=== PATIENT | female | born 1995 | race Caucasian/White ===

== ENCOUNTER 2016-10-24 06:52 | Day surgery (SDC) | payer OTHER ==
[~2016-10-24 06:52] MED LIST: RINGER'S SOLUTION,LACTATED 1,000 ML IV PRN; ceFAZolin SODIUM 2 GM in DEXTROSE 5 % IN WATER 50 ML IV PRN
[2016-10-24] MEDS ORDERED: BUPIVACAINE HCL/EPINEPHRINE 50 ML VIAL IJ ONE ×2 (08:05)
[2016-10-24] MEDS ORDERED: MUPIROCIN 22 APPL TUBE TP ONE (08:31)
[2016-10-24] MEDS ORDERED: RINGER'S SOLUTION,LACTATED 1,000 ML IV ONE (09:10)
[2016-10-24] MEDS ORDERED: RINGER'S SOLUTION,LACTATED 1,000 ML IV PRN (09:38)
[2016-10-24] MEDS ORDERED: oxyCODONE HCL/ACETAMINOPHEN 1 TAB TABLET PO ONE ×2 (09:38→11:01)
[2016-10-24] MEDS ORDERED: oxyCODONE HCL/ACETAMINOPHEN 1 TAB TABLET ONE (11:14)
--- NOTE | 2016-10-24 11:52 | OR ---
Operative Report - Dictated Report Narrative: DATE OF OPERATION: 10/24/2016 PREOPERATIVE DIAGNOSIS: Cholelithiasis and cholecystitis POSTOPERATIVE DIAGNOSIS: Cholelithiasis and cholecystitis OPERATION: Laparoscopic cholecystectomy SURGEON: YOHANNES Sauer MD ANESTHESIA Gen. kathy Hylton CRNA INDICATIONS FOR PROCEDURE: The patient is a 20-year-old female referred by Dr. Kellen Knapp with symptomatic cholelithiasis. FINDINGS: Cholelithiasis and cholecystitis NARRATIVE OF PROCEDURE: The patient was identified preoperatively. Prior to the administration of anesthetic a multidisciplinary timeout observed. With the patient in the supine position, SCDs were placed, 2 g of intravenous Ancef administered, and general endotracheal anesthetic administered. The patient's abdomen was prepped with Betadine solution and a generous operating field outlined with 4 sterile towels. The remainder the patient was covered with a sterile disposable drape. An infraumbilical skin incision was made. Dissection was carried along the umbilical stalk until the fascia of the linea alba was encountered. This was incised. The peritoneum was then elevated and incised to allow entry into the abdomen under direct vision. A Hussan cannula was placed, and the abdomen insufflated with CO2. The laparoscopic camera was introduced and the abdomen briefly explored. Those portions of the liver, stomach, colon, and small bowel visualized appeared normal. The apex of the gallbladder was visible and appeared noninflamed. Next under direct vision 3 additional working ports were inserted through separate skin incisions, one in the subxiphoid, one in the right upper quadrant, and one in the right flank. The gallbladder was decompressed with a needle and the needle site grasped. The apex of the gallbladder was retracted cephalad. There were no adhesions to the gallbladder and the expected location of the cystic duct was explored. The cystic duct was dissected free for a sufficient distance for confident identification. It was doubly clipped and divided. The cystic artery was identified doubly clipped and divided. The gallbladder was then removed from the liver bed by retrograde electrocautery dissection. Prior to severing the last attachments of the gallbladder the liver bed was inspected and found to be hemostatic with no evidence of bile leak. The previously placed clips were seen to be intact. The right upper quadrant was suctioned clean. The last attachments of the gallbladder were divided. It was placed in an Endobag and parked in the right upper quadrant. The smaller working ports were withdrawn under direct vision to ensure entry site hemostasis. The gallbladder was removed in conjunction with the Hussan cannula. The pneumoperitoneum was allowed to escape, and after receiving a correct sponge needle and instrument count attention was turned to closing the abdomen. The fascia and peritoneum at the umbilicus were approximated with interrupted sutures of #1 Vicryl. Skin incisions were approximated with interrupted vertical mattress sutures of 4-0 nylon. The operative sites were washed and dried. Dressings of Bactroban ointment and large Band-Aids were applied to the small port sites. The umbilical incision was dressed with Bactroban ointment, 2 x 2, large Band-Aid and Medipore tape. The operative procedure was terminated at this point. The patient tolerated the anesthetic and procedure well without complication. There was no measurable blood loss. The gallbladder was submitted to pathology. 0.5% Marcaine with epinephrine was used for local anesthetic infiltration. The patient was transferred to the recovery room awake, extubated , and in stable condition. The patient remained stable throughout a period of postoperative observation. She was able to tolerate po intake and was up without assistance. Her pain was controlled with Percocet. Her dressings remained dry. I reviewed the operative findings with her and she was given copies of the photographs which appear in the medical record. The patient was discharged home with instructions not to lift and not to drive. She is to leave the current dressing dry and intact for 48 hours, but then may shower and change the dressing daily or as needed. She was given phone numbers to call when necessary signs of wound infection or hematoma. The patient was given a prescription for Percocet 5/325 mg #30 1-2 po Q4-6hrs prn pain. A return office appointment was made for 1 week. Reviewed and electronically signed
[2016-10-24 12:40] VITALS: BP 115/60
== END 2016-10-24 06:53 | disposition home or self-care (01) ==
LOC: AMB 06:52
PROVIDERS: ATTEND Surgery
PROC: 0FT44ZZ Resection of Gallbladder, Percutaneous Endoscopic Approach (ICD-10-PCS; principal; 2016-10-24 08:00)
DX: K80.12 Calculus of gallbladder with acute and chronic cholecystitis without obstruction (principal); Z68.33 Body mass index [BMI] 33.0-33.9, adult